=== PATIENT | male | born 1935 | race Caucasian/White ===

== ENCOUNTER → 2017-10-01 | Day surgery (SDC) | payer MEDICARE, OTHER ==
[2017-09-27 11:50] LABS: BASOPHILS % 0.3 % (0.0-1.0); EOSINOPHILS # (AUTO) 0.2 (0.0-0.4); EOSINOPHILS % 3.5 % (0.0-6.0); HEMATOCRIT 38.1 % (38.2-49.6); HEMOGLOBIN 12.6 g/dL (14.0-18.0); LYMPHOCYTES # (AUTO) 1.3 (1.0-3.2); LYMPHOCYTES % 19.7 % (18.0-39.1); MEAN CORPUSCULAR HEMOGLOBIN 28.8 pg (28-32); MEAN CORPUSCULAR HGB CONC 33.1 g/dL (31-35); MEAN CORPUSCULAR VOLUME 87.2 fL (81-99); MONOCYTES # (AUTO) 0.5 (0.2-0.8); NEUTROPHILS # (AUTO) 4.5 (2.1-6.9); PLATELET COUNT 125 x10e3/uL (140-360); RED BLOOD COUNT 4.37 x10e6/uL (4.3-5.7); RED CELL DISTRIBUTION WIDTH 12.6 % (11.7-14.4)
[~2017-10-01] MED LIST: CENTRUM SILVER1 EAC2 PO; HYOSCYAMINE SULFATE 0.5 MG/ML AMP ONE; LIDOCAINE HCL 2% LOCAL INJ 5 ML SDV VIAL INJ ONE; LIPITOR20 MG PO; LISINOPRIL20 MG PO; MIDAZOLAM HCL 2 MG/2 ML VIAL ONE; PROPOFOL IV EMULSION 10 MG/ML 50 ML VIAL ONE
--- NOTE | 2017-10-01 11:50 | Operative Report ---
DATE OF PROCEDURE: October 01, 2017 REFERRING PHYSICIAN: Dr. Natty Langford. PROCEDURE PERFORMED: Colonoscopy and polypectomy. INDICATIONS FOR COLONOSCOPY: Colorectal cancer screening. Personal history of colon polyps. MEDICATION: Patient was done under MAC. Please see anesthesiologist's note. PROCEDURE: With the patient in the left lateral decubitus position, the flexible fiberoptic Olympus colonoscope was inserted into the rectum with ease and advanced all the way to the cecum. Two cecal polyps were removed per snare electrocautery. The cecal pouch was somewhat nodular, and that was biopsied. There were still some retained stools in the colon, primarily the right colon, so prep overall was suboptimal. The scope was then withdrawn slowly, and 2 polyps were snared from the ascending colon and 1 polyp was hot biopsied. Two polyps were snared from the transverse colon. Diverticular disease was noted to involve the descending and the sigmoid. The rectum grossly appeared to be within normal limits. The scope was then retroflexed into the distal rectum, and moderate-size internal hemorrhoids were noted, none of which was actively bleeding. The scope was then straightened out. It was subsequently withdrawn. Patient tolerated the procedure well. IMPRESSION 1. Suboptimal prep. 2. Cecal polyps times 2, snared. 3. Cecal pouch somewhat nodular, biopsied. 4. Ascending colon polyps times 3, two snared and one hot biopsied. 5. Transverse colon polyps times 2, snared. 6. Diverticulosis. 7. Internal hemorrhoids, none actively bleeding. PLAN: Follow up histology. Initiate high-fiber, low-fat diet. Initiate high-fiber supplement. Patient might benefit from a followup colonoscopy in 1 year due to the suboptimal prep. Job#: [id number] cc:NATTY LNAGFORD DO
== END | disposition home or self-care (01) ==
LOC: OR 08:20
PROVIDERS: ATTEND Internal Medicine Gastroenterology
DX: Z12.11 Encounter for screening for malignant neoplasm of colon (principal); D12.0 Benign neoplasm of cecum; D12.2 Benign neoplasm of ascending colon; D12.3 Benign neoplasm of transverse colon; K57.30 Diverticulosis of large intestine without perforation or abscess without bleeding; K64.8 Other hemorrhoids; K21.9 Gastro-esophageal reflux disease without esophagitis; I10 Essential (primary) hypertension; Z01.810 Encounter for preprocedural cardiovascular examination; Z01.812 Encounter for preprocedural laboratory examination; Z68.31 Body mass index [BMI] 31.0-31.9, adult; Z85.46 Personal history of malignant neoplasm of prostate
CPT/HCPCS: 36415; 45380; 45384; 45385; 85025; 88305; 93005; J1980; J2001; J2250

== ENCOUNTER 2018-10-04 14:42 | Observation (INO) | payer MEDICARE, OTHER ==
[~2018-10-04] VITALS: Ht 172.7 cm; Wt 99.8 kg
[~2018-10-04 14:42] MED LIST changes: -HYOSCYAMINE SULFATE 0.5 MG/ML AMP ONE; -LIDOCAINE HCL 2% LOCAL INJ 5 ML SDV VIAL INJ ONE; -MIDAZOLAM HCL 2 MG/2 ML VIAL ONE; -PROPOFOL IV EMULSION 10 MG/ML 50 ML VIAL ONE
[2018-10-04] MEDS ORDERED: DILTIAZEM HCL 5 MG/ML 5 ML VIAL IV STA (15:03)
[2018-10-04] MEDS ORDERED: ASPIRIN 81 MG CHEW TAB PO ONE ×2 (15:15)
[2018-10-04 15:38] LABS: BASOPHILS % 0.3 % (0.0-1.0); EOSINOPHILS # (AUTO) 0.3 (0.0-0.4); EOSINOPHILS % 4.2 % (0.0-6.0); HEMATOCRIT 41.6 % (38.2-49.6); HEMOGLOBIN 14.4 g/dL (14.0-18.0); LYMPHOCYTES # (AUTO) 1.3 (1.0-3.2); LYMPHOCYTES % 18.9 % (18.0-39.1); MEAN CORPUSCULAR HEMOGLOBIN 30.3 pg (28-32); MEAN CORPUSCULAR HGB CONC 34.6 g/dL (31-35); MEAN CORPUSCULAR VOLUME 87.4 fL (81-99); MONOCYTES # (AUTO) 0.8 (0.2-0.8); NEUTROPHILS # (AUTO) 4.4 (2.1-6.9); PLATELET COUNT 146 x10e3/uL (140-360); RED BLOOD COUNT 4.76 x10e6/uL (4.3-5.7); RED CELL DISTRIBUTION WIDTH 12.3 % (11.7-14.4)
[2018-10-04 15:49] LABS: ALANINE AMINOTRANSFERASE 19 IU/L (0-55); ALBUMIN 4.4 g/dL (3.5-5.0); ALBUMIN/GLOBULIN RATIO 1.3 (0.8-2.0); ALKALINE PHOSPHATASE 47 IU/L (40-150); ANION GAP 16.2 mmol/L (8-16); BLOOD UREA NITROGEN 19 mg/dL (7-26); BUN/CREATININE RATIO 22 (6-25); CALCIUM 9.6 mg/dL (8.4-10.2); CARBON DIOXIDE 24 mmol/L (22-29); CHLORIDE 99 mmol/L (98-107); CREATINE KINASE 64 IU/L (30-200); CREATININE, SERUM 0.87 mg/dL (0.72-1.25); EST GLOMERULAR FILTRATION RATE > 60 ML/MIN (60-); GLUCOSE 185 mg/dL (74-118); POTASSIUM 4.2 mmol/L (3.5-5.1); SODIUM 135 mmol/L (136-145)
--- NOTE | 2018-10-04 17:24 | Diagnostic Imaging Report ---
EXAMINATION: CHEST SINGLE (PORTABLE) COMPARISON: None INDICATION: Atrial fibrillation, tachycardia DISCUSSION: Frontal view of the chest obtained at 1708 hours. HEART AND MEDIASTINUM: The heart is top normal in size. The aorta is ectatic LINES: None. LUNGS: Well-inflated. Round density in the left midlung field measures 12 mm. No consolidation. Pulmonary vascular markings are normal. PLEURA: No pleural effusion or pneumothorax. BONES AND SOFT TISSUES: There are several healed left posterior rib fractures. There are moderate degenerative changes of the left shoulder. Several radiodensities are present in the soft tissues surrounding the left shoulder and lower left neck. IMPRESSION: No acute cardiopulmonary disease. Other findings as described above. Signed by: Dr. An Hinojosa MD on 10/04/2018 5:21 PM
[2018-10-04] MEDS: METOPROLOL TARTRATE 25 MG TAB PO SCH (17:45)
--- NOTE | 2018-10-04 19:00 | NUR ---
received bedside report from claudia rivera, pt awake alert skin w/d resp nonlab, nad noted. resting in poc at this time
--- NOTE | 2018-10-04 21:39 | NUR ---
pt awake alert skin w/d resp nonlab. nad noted.
[2018-10-05 00:02] LABS: CREATINE KINASE MB 1.1 ng/mL (0-5.0)
--- NOTE | 2018-10-05 03:25 | NUR ---
pt awake alert skin w/d resp nonlab, nad noted. voided in urinal, emptied 200cc from urinal.
[2018-10-05 07:01] LABS: CHOL/HDL RATIO 4.2 (3.9-4.7)
--- NOTE | 2018-10-05 07:10 | NUR ---
ASSUMED CARE AT THIS TIME. PATIENT AWAKE AND ALERT SITTING IN BED. RESP EVEN AND UNLABORED. SKIN WARM AND DRY. NO SIGNS OF ACUTE DISTRESS NOTED AT THIS TIME. DENIES ANY C/O AT THIS TIME. FAMILY AT BEDSIDE.
[2018-10-05 07:30] LABS: CREATINE KINASE MB 1.2 ng/mL (0-5.0)
[2018-10-05] MEDS: METOPROLOL TARTRATE 25 MG TAB PO SCH ×2 (09:40→17:58)
--- NOTE | 2018-10-05 10:29 | NUR ---
DR Eduardo LANGFORD AT BEDSIDE FOR PATIENT EVAL AND DISCUSSING THE CURRENT PLAN OF CARE, VERBALIZED UNDERSTANDING. NO SIGNS OF ACUTE DISTRESS NOTED AT THIS TIME.
--- NOTE | 2018-10-05 10:30 | NUR ---
DR Eduardo LANGFORD AT BEDSIDE DISCUSSING PLANNED PROCEDURE, TRANSESOPHOGEAL ECHOCARDIOGRAM AND CARDIOVERSION, DR LANGFORD EDUCATING PATIENT AND FAMILY ON THE RISKS AND BENEFITS OF PROCEDURE, VERBALIZED UNDERSTANDING. VERBAL ORDER RECEIVED TO CONSENT PATIENT FOR PROCEDURE.
[2018-10-05 10:51] LABS: MAGNESIUM 2.2 MG/DL (1.3-2.1)
--- NOTE | 2018-10-05 10:55 | NUR ---
DR Dejah BRANHAM AT BEDSIDE FOR PATIENT EVAL AND DISCUSSING THE CURRENT PLAN OF CARE, PATIENT AND FAMILY VERBALIZED UNDERSTANDING. NO SIGNS OF ACUTE DISTRESS NOTED AT THIS TIME.
[2018-10-05 11:19] LABS: THYROID STIMULATING HORMONE 2.849 uIU/mL (0.350-4.940)
--- NOTE | 2018-10-05 12:27 | NUR ---
PATIENT AWAKE AND ALERT SITTING IN BED. RESP EVEN AND UNLABORED. SKIN WARM AND DRY. NO SIGNS OF ACUTE DISTRESS NOTED AT THIS TIME. DENIES ANY C/O AT THIS TIME. FAMILY AT BEDSIDE.
--- NOTE | 2018-10-05 13:15 | NUR ---
CONSENT FORM SIGNED FOR TRANSESOPHOGEAL ECHOCARDIOGRAM AND CARDIOVERSION, EDUCATED PATIENT ON THE RISKS AND BENEFITS OF PROCEDURE, PATIENT AND FAMILY VERBALIZED UNDERSTANDING. GIVEN OPPORTUNITY TO ASK QUESTIONS, DENIES ANY QUESTIONS OR CONCERNS AT THIS TIME.
[2018-10-05] MEDS ORDERED: BENZOCAINE 20% SPR 60 ML CAN ONE (13:50)
[2018-10-05] MEDS ORDERED: SODIUM CHLORIDE 0.9% 1000ML 1,000 ML ONE (13:50)
--- NOTE | 2018-10-05 13:57 | NUR ---
BEDSIDE REPORT CORTNEYN TO [facility]ANGER NURSE, PAULETTE SHARMA.
--- NOTE | 2018-10-05 14:00 | NUR ---
PATIENT TRANSPORTED TO [facility] BY [facility] RN. NO SIGNS OF ACUTE DISTRESS NOTED AT THIS TIME.
--- NOTE | 2018-10-05 15:07 | Consultation ---
DATE OF CONSULTATION: October 05, 2018 CARDIOLOGY CONSULTATION REASON FOR CONSULTATION: Atrial flutter. HISTORY OF PRESENT ILLNESS: This is an 83-year-old man with a history of hypertension and hypercholesterolemia, who presented to my outpatient clinic with generalized fatigue and shortness of breath. He was found to be in atrial flutter with 2:1 with a heart rate of approximately 150. He denies any palpitations or syncopal events. No cardiovascular disease or cerebrovascular accidents. He was brought to the ER here at our facility, and received diltiazem and metoprolol, which controlled his heart rate better. However, he remained in atrial flutter. He underwent transesophageal echocardiography, which revealed no intracardiac masses or thrombi. He underwent successful direct current cardioversion with prompt church to normal sinus rhythm. REVIEW OF SYSTEMS: A 12-point review of systems was conducted, and is negative other than described in HPI. PAST MEDICAL HISTORY: Hypertension, hyperlipidemia. PAST SURGICAL HISTORY: None recent. FAMILY HISTORY: No premature coronary artery disease or sudden cardiac . SOCIAL HISTORY: No current illicit drug use, alcohol use or tobacco use. ALLERGIES: NO KNOWN DRUG ALLERGIES. MEDICATIONS: See medication reconciliation form. PHYSICAL EXAMINATION VITALS: Temperature is 98.7, heart rate is 73, respirations are 16, blood pressure is 119/98, oxygen saturation is 98% on 2 L nasal cannula. GENERAL: He is a well-appearing elderly man lying comfortably in bed. HEENT: Head is normocephalic and atraumatic. Eyes: Extraocular muscles are intact. Throat is clear. NECK: No JVD. No bruits. CARDIOVASCULAR: He is irregularly irregular. Normal rate. Normal S1 and S2. Soft murmur at the right sternal border. LUNGS: Clear to auscultation. ABDOMEN: Soft, nontender and nondistended. EXTREMITIES: No clubbing, cyanosis or edema. VASCULAR: Two plus pulses. SKIN: Warm, dry and intact. NEUROLOGIC: No focal deficits noted. Cranial nerves grossly intact. PSYCHIATRIC: Normal mood and affect. LABORATORY DATA: Reviewed. Hemoglobin 14.4 and platelets 146,000. Potassium 4.2. Magnesium 2.2. TSH is 2.8. LDL is 90. Creatinine 0.87. Chest x-ray shows no cardiopulmonary abnormality. A 12-lead electrocardiogram showed atrial flutter with 2:1 block. A 12-lead electrocardiogram #2 showed atrial flutter with a 3:1 AV block. A 2-D echocardiogram showed overall preserved left ventricular systolic function with estimated ejection fraction of 55% to 60% with aortic sclerosis without significant stenosis. IMPRESSION 1. Atrial flutter: Status post direct current cardioversion. 2. Hypertension. 3. Hyperlipidemia. 4. Aortic sclerosis without stenosis. 5. Mitral regurgitation. RECOMMENDATIONS: This patient underwent successful direct current cardioversion with church to normal sinus rhythm. Will continue metoprolol for rate control. Will start oral anticoagulation in the form of Eliquis for approximately 4 weeks. Also, continue his lisinopril and atorvastatin. The patient will be monitored overnight on telemetry monitoring with possible discharge in the morning. Job#: [id number] BURTON
--- NOTE | 2018-10-05 15:07 | Operative Report ---
DATE OF PROCEDURE: PROCEDURES PERFORMED 1. Transesophageal echocardiography. 2. Direct current cardioversion. PREOPERATIVE DIAGNOSIS: Atrial flutter. POSTOPERATIVE DIAGNOSIS: Atrial flutter. ESTIMATED BLOOD LOSS: 0 mL. SPECIMENS REMOVED: None. PROCEDURE IN DETAIL: After informed consent was obtained, the patient was brought to the cardiac catheterization laboratory in the fasting, nonsedated state. His posterior pharynx was anesthetized with Hurricane spray. Patient received sedation using monitored anesthesia care in the form of propofol. The cardiography probe was passed with ease and multiple images were performed. No intracardiac masses or thrombi were noted. Patient underwent successful direct current cardioversion at 200 joules. Job#: [id number] LILIAM
[2018-10-05] MEDS ORDERED: ZYRTEC10 M3 PO (15:18)
[2018-10-05] MEDS ORDERED: MUCINEX DM ER1 EACH PO (15:18)
[2018-10-05 15:19] VITALS: BP 119/59
[2018-10-05 15:24] VITALS: BP 119/59
[2018-10-05 16:14] LABS: CREATINE KINASE MB 1.1 ng/mL (0-5.0)
[2018-10-05] MEDS: APIXABAN 5 MG TABLET PO SCH (17:58)
[2018-10-05] MEDS ORDERED: PROPOFOL IV EMULSION 10 MG/ML 20 ML VIAL ONE (19:26)
[2018-10-05] MEDS ORDERED: LIDOCAINE HCL 2% LOCAL INJ 5 ML SDV VIAL INJ ONE (19:26)
[2018-10-05 19:55] VITALS: BP 128/71
[2018-10-05] MEDS ORDERED: ATORVASTATIN 20 MG TAB PO SCH (21:00)
[2018-10-05 23:34] VITALS: BP 128/71
[2018-10-06] VITALS: BP 121/71
[2018-10-06 04:40] VITALS: BP 132/68
[2018-10-06 07:25] VITALS: BP 151/72
--- NOTE | 2018-10-06 07:29 | NUR ---
pt resting in bed, no s/s distress at this time. no c/o pain. will continue to monitor.
--- NOTE | 2018-10-06 08:51 | NUR ---
CASE MANAGEMENT INITIAL ASSESSMENT Skiver Sock Linings to bedside to discuss plan of care with patient/family. CM/SW role and care transitions discussed. Anticipated discharge plan discussed along with duration of care. CM/SW discussed patients right to make decisions in care. CM/SW work hours given. Patient lives: IN HOUSE WITH Admit/Transfer: FROM HOME POA/Emergency contact: KEE [phone] Current/Previous Home Health: NONE PCP/Follow-up Care: [facility] Current/Previous DME: [facility] Other Services: NONE Employment Status: RETIRED Areas of Concerns: NONE Referral Needs: NONE Education Needs: NONE IMM/SMITH given and signed (if applicable): SMITH Goal for discharge: RETURN HOME INDEPENDENTLY CM/SW left business card at the bedside with contact information. Name and number was also written on the patients whiteboard. Patient verbalized understanding of discussion. CM will follow-up with ongoing discharge and transition of care needs.
[2018-10-06] MEDS ORDERED: LISINOPRIL 20 MG TAB PO SCH (09:00)
[2018-10-06] MEDS: APIXABAN 5 MG TABLET PO SCH (09:46)
[2018-10-06] MEDS: METOPROLOL TARTRATE 25 MG TAB PO SCH (09:47)
[2018-10-06 11:25] VITALS: BP 151/72
[2018-10-06 11:30] VITALS: BP 114/66
[2018-10-06 15:33] VITALS: BP 121/78
--- NOTE | 2018-10-06 16:04 | NUR ---
pt abhay, reviewed dc instructions and new rx with patient and family, verified understanding.
--- NOTE | 2018-10-06 16:08 | Progress Note ---
DATE: October 06, 2018 CARDIOLOGY PROGRESS NOTE SUBJECTIVE: Patient feels better, ready to go home, denies any chest pain or shortness of breath. OBJECTIVE: VITAL SIGNS: Temperature is 97.9, heart rate is 74, respirations are 20, blood pressure is 121/78, oxygen saturation is 96% on room air. GENERAL: Well-appearing, well-built, in no apparent distress. CARDIOVASCULAR: Regular rate and rhythm. LUNGS: Clear to auscultation. ABDOMEN: Soft, nontender, nondistended. EXTREMITIES: No clubbing, cyanosis or edema. VASCULAR: 2+ pulses. LABORATORY DATA: Reviewed. TELEMETRY MONITORING: Showed normal sinus rhythm. CARDIOVASCULAR MEDICATIONS: Reviewed. IMPRESSION: 1. Atrial flutter with rapid ventricular response, resolved status post transesophageal echocardiogram and direct current cardioversion. 2. Hypertension. 3. Hyperlipidemia. PLAN: Patient underwent successful JAMES with cardioversion. He has maintained normal sinus rhythm. Continue Eliquis for anticoagulation for 4 weeks. Continue metoprolol for rate control. Otherwise continue current cardiovascular medications for his hyperlipidemia and hypertension. Patient is stable for discharge. Job#: [id number] EV
== END 2018-10-06 16:05 | disposition home or self-care (01) ==
LOC: ER 14:42 → ERHOLD 17:02 → IMCU 10-05 14:59
DX: I48.92 Unspecified atrial flutter (principal); I48.91 Unspecified atrial fibrillation; K21.9 Gastro-esophageal reflux disease without esophagitis; E78.5 Hyperlipidemia, unspecified; E78.00 Pure hypercholesterolemia, unspecified; I70.0 Atherosclerosis of aorta; I34.0 Nonrheumatic mitral (valve) insufficiency
CPT/HCPCS: 36415 ×2; 71045; 80053; 80061; 82550 ×2; 82553 ×2; 83735; 84436; 84443; 84479; 84484 ×2; 85025; 93005; 93306; 93307; 93312; 93325; 99284; G0378 ×3; J2001; J2704; J7030

== ENCOUNTER → 2019-02-20 | Outpatient (CLI) | payer MEDICARE, OTHER ==
[~2019-02-20] MED LIST changes: +MUCINEX DM ER1 EACH PO; +ZYRTEC10 M3 PO
--- NOTE | 2019-02-20 12:01 | Diagnostic Imaging Report ---
Right knee MRI without contrast. History: Knee pain. Arthritis. Decreased range of motion. Pain not responding to conservative management. Comparison: None. Technique: Multiplanar multi-sequence MRI of the knee without contrast. Findings: Medial compartment: Obliquely oriented medial meniscus tear involving the posterior horn and body segments. Mild reactive bone marrow edema at the periphery of the medial tibial plateau. The medial compartmental articular cartilage surfaces are thinned with regions of fraying and fissuring. There are small peripheral marginal osteophytes. The medial collateral ligament complex is intact. Artifact at the medial joint line obscures fine detail of the region. Lateral compartment: Complex displaced lateral meniscus tear involving the posterior horn and body segments. Articular cartilage fraying and deep fissuring in the lateral compartment with marked underlying bone marrow edema. The lateral collateral ligament complex is intact. Intercondylar notch: The ACL and PCL are intact. Patellofemoral compartment: Articular cartilage fraying and fissuring in the patellofemoral compartment.. Extensor mechanism: The quadriceps and patellar tendons are normal. Other findings: There is a joint effusion and synovitis. There is no acute fracture, subluxation or avascular necrosis. 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 Oblique medial meniscus tear with mild degenerative arthrosis in the medial compartment of the knee. Artifact at the medial joint line obscures fine detail of the region. Joint effusion, synovitis and lobulated septated Reyes's cyst. Signed by: Dr. Dakota Azar M.D. on 02/20/2019 11:58 AM
== END ==
LOC: MRI 10:39
PROVIDERS: ATTEND Family Medicine
DX: M17.11 Unilateral primary osteoarthritis, right knee (principal)

== ENCOUNTER → 2019-03-16 | Outpatient (RCR) | payer MEDICARE, OTHER ==
[~2019-03-16] MED LIST changes: +BACITRACIN 50,000 UNIT VIAL ONE; +BUPIVACAINE 0.5%/EPI 30 ML SDV INJ ONE; +GELATIN SPONGE 12-7MM ONE; +THROMBIN FOR SOLN 5,000 UNIT VIAL ONE
== END ==
LOC: PT 03-06 13:56
PROVIDERS: ATTEND Orthopaedic Surgery
DX: M17.11 Unilateral primary osteoarthritis, right knee (principal); M25.561 Pain in right knee; M25.661 Stiffness of right knee, not elsewhere classified; M62.81 Muscle weakness (generalized); R26.2 Difficulty in walking, not elsewhere classified

== ENCOUNTER 2019-04-13 14:54 | Outpatient (RCR) | payer MEDICARE, OTHER ==
[~2019-04-13 14:54] MED LIST changes: -BACITRACIN 50,000 UNIT VIAL ONE; -BUPIVACAINE 0.5%/EPI 30 ML SDV INJ ONE; -GELATIN SPONGE 12-7MM ONE; -THROMBIN FOR SOLN 5,000 UNIT VIAL ONE
== END 2019-04-15 ==
LOC: PT 14:54
PROVIDERS: ATTEND Orthopaedic Surgery
DX: M17.11 Unilateral primary osteoarthritis, right knee (principal); M62.81 Muscle weakness (generalized); R26.2 Difficulty in walking, not elsewhere classified

== ENCOUNTER 2019-04-24 15:00 | Outpatient (RCR) | payer MEDICARE, OTHER | END 2019-05-16 | LOC: PT 15:00 | PROVIDERS: ATTEND Orthopaedic Surgery | DX: M17.11 Unilateral primary osteoarthritis, right knee (principal); M62.81 Muscle weakness (generalized); R26.2 Difficulty in walking, not elsewhere classified | CPT/HCPCS: 97139 ==

== ENCOUNTER 2020-09-12 13:10 | Emergency (ER) | payer MEDICARE, OTHER ==
[~2020-09-12] VITALS: Ht 172.7 cm; Wt 99.8 kg
[2020-09-12] MEDS ORDERED: ASPIRIN81 MG (13:34)
[2020-09-12] MEDS ORDERED: METOPROLOL SUCC25 MG (13:34)
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
--- OUTSIDE RECORDS SUMMARY | 2020-09-12 13:56 | XMS REPORT | Continuity of Care Document ---
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 UDV9690) 0.010 0-0.300 [facility] TaylorCreatine Qgcjya7670-40-93 16:10:00* Test Item Value Reference Range Interpretation Comments Creatine Kinase (test code = 2157-6) 63 30-200 [facility] TaylorCreatine Xnhmyk5472-88-97 16:10:00* Test Item Value Reference Range Interpretation Comments Creatine Kinase (test code = 2157-6) 63 30-200 [facility] TaylorCreatine Qmkeyd8023-60-14 16:10:00* Test Item Value Reference Range Interpretation Comments Creatine Kinase (test code = 2157-6) 63 30-200 [facility] TaylorCreatine Xiwuyp1038-92-96 16:10:00* Test Item Value Reference Range Interpretation Comments Creatine Kinase (test code = 2157-6) 63 30-200 [facility] TaylorFree Thyroxine Gpvfb0864-27-98 11:30:00* Test Item Value Reference Range Interpretation Comments Free Thyroxine Index (test code = 27304-2) 2.0268 1.4-3.8 [facility] TaylorThyroxine (T4)2018-10-05 11:30:00* Test Item Value Reference Range Interpretation Comments Thyroxine (T4) (test code = 3026-2) 5.97 4.5-10.9 [facility] TaylorTriiodothyronine (T3) Ufyauu3051-58-32 11:30:00* Test Item Value Reference Range Interpretation Comments Triiodothyronine (T3) Uptake (test code = 3050-2) 33.95 22.5 -37.0 [facility] TaylorThyroid Stimulating Hormone (TSH) 2018-10-05 11:30:00* Test Item Value Reference Range Interpretation Comments Thyroid Stimulating Hormone (TSH) (test code = 41110-0) 2.849 0.350-4.940 [facility] TaylorFr Thyroxine Ekonq5022-63-25 11:30:00* Test Item Value Reference Range Interpretation Comments Free Thyroxine Index (test code = 57117-2) 2.0268 1.4-3.8 [facility] TaylorThyroxine (T4)2018-10-05 11:30:00* Test Item Value Reference Range Interpretation Comments Thyroxine (T4) (test code = 3026-2) 5.97 4.5-10.9 [facility] TaylorTriiodothyronine (T3) Baupfn1973-45-53 11:30:00* Test Item Value Reference Range Interpretation Comments Triiodothyronine (T3) Uptake (test code = 3050-2) 33.95 22.5 -37.0 [facility] TaylorThyroid Stimulating Hormone (TSH) 2018-10-05 11:30:00* Test Item Value Reference Range Interpretation Comments Thyroid Stimulating Hormone (TSH) (test code = 23438-7) 2.849 0.350-4.940 [facility] TaylorFr Thyroxine Rnckg2689-33-65 11:30:00* Test Item Value Reference Range Interpretation Comments Free Thyroxine Index (test code = 94480-6) 2.0268 1.4-3.8 [facility] TaylorThyroxine (T4)2018-10-05 11:30:00* Test Item Value Reference Range Interpretation Comments Thyroxine (T4) (test code = 3026-2) 5.97 4.5-10.9 [facility] TaylorTriiodothyronine (T3) Eydwro0554-58-19 11:30:00* Test Item Value Reference Range Interpretation Comments Triiodothyronine (T3) Uptake (test code = 3050-2) 33.95 22.5 -37.0 [facility] TaylorThyroid Stimulating Hormone (TSH) 2018-10-05 11:30:00* Test Item Value Reference Range Interpretation Comments Thyroid Stimulating Hormone (TSH) (test code = 01751-6) 2.849 0.350-4.940 [facility] TaylorFr Thyroxine Kqjrt9576-89-81 11:30:00* Test Item Value Reference Range Interpretation Comments Free Thyroxine Index (test code = 06362-0) 2.0268 1.4-3.8 [facility] TaylorThyroxine (T4)2018-10-05 11:30:00* Test Item Value Reference Range Interpretation Comments Thyroxine (T4) (test code = 3026-2) 5.97 4.5-10.9 [facility] TaylorTriiodothyronine (T3) Hheneh6185-43-24 11:30:00* Test Item Value Reference Range Interpretation Comments Triiodothyronine (T3) Uptake (test code = 3050-2) 33.95 22.5 -37.0 [facility] TaylorThyroid Stimulating Hormone (TSH) 2018-10-05 11:30:00* Test Item Value Reference Range Interpretation Comments Thyroid Stimulating Hormone (TSH) (test code = 05218-0) 2.849 0.350-4.940 [facility] Clubgnesium Nzqhz6249-55-50 10:53:00* Test Item Value Reference Range Interpretation Comments Magnesium Level (test code = 68574-7) 2.2 1.3-2.1 H [facility] TaylorMaesium Reykj7995-14-86 10:53:00* Test Item Value Reference Range Interpretation Comments Magnesium Level (test code = 39510-2) 2.2 1.3-2.1 H [facility] Trophy Clubgnesium Fbduk1822-37-12 10:53:00* Test Item Value Reference Range Interpretation Comments Magnesium Level (test code = 70627-5) 2.2 1.3-2.1 H [facility] TaylorMagnesium Nupku9883-91-04 10:53:00* Test Item Value Reference Range Interpretation Comments Magnesium Level (test code = 17996-8) 2.2 1.3-2.1 H [facility] TaylorTriglycerides Paklg3618-57-32 07:06:00* Test Item Value Reference Range Interpretation Comments Triglycerides Level (test code = 2571-8) 179 0-149 H [facility] TaylorCholesterol Qwals5641-58-17 07:06:00* Test Item Value Reference Range Interpretation Comments Cholesterol Level (test code = 2093-3) 165 0-199 Less than 200 mg/dL Low Ccsi651 - 239 mg/dL Borderline Otjn391 m g/dl and greater High Risk [facility] TaylorLDL Giupbagwxij4513-48-85 07:06:00* Test Item Value Reference Range Interpretation Comments LDL Cholesterol (test code = 2089-1) 90 60-130 [facility] TaylorHDL Szcrefjruam5891-69-16 07:06:00* Test Item Value Reference Range Interpretation Comments HDL Cholesterol (test code = 2085-9) 39 40-60 L [facility] TaylorCholesterol/HDL Qqeof4888-38-62 07:06:00 * Test Item Value Reference Range Interpretation Comments Cholesterol/HDL Ratio (test code = 9830-1) 4.2 3.9-4.7 [facility] TaylorTriglycerides Hhycu7863-12-81 07:06:00* Test Item Value Reference Range Interpretation Comments Triglycerides Level (test code = 2571-8) 179 0-149 H [facility] TaylorCholesterol Fypqk6166-14-00 07:06:00* Test Item Value Reference Range Interpretation Comments Cholesterol Level (test code = 2093-3) 165 0-199 Less than 200 mg/dL Low Htkz080 - 239 mg/dL Borderline Eycz060 m g/dl and greater High Risk [facility] TaylorLDL Kncjpipilsy2593-99-86 07:06:00* Test Item Value Reference Range Interpretation Comments LDL Cholesterol (test code = 2089-1) 90 60-130 [facility] TaylorHDL Ymabyrqpgve1397-48-27 07:06:00* Test Item Value Reference Range Interpretation Comments HDL Cholesterol (test code = 2085-9) 39 40-60 L [facility] TaylorCholesterol/HDL Maxgw2193-70-92 07:06:00 * Test Item Value Reference Range Interpretation Comments Cholesterol/HDL Ratio (test code = 9830-1) 4.2 3.9-4.7 [facility] TaylorTriglycerides Iegpm3059-36-94 07:06:00* Test Item Value Reference Range Interpretation Comments Triglycerides Level (test code = 2571-8) 179 0-149 H [facility] TaylorCholesterol Dtudu3912-25-89 07:06:00* Test Item Value Reference Range Interpretation Comments Cholesterol Level (test code = 2093-3) 165 0-199 Less than 200 mg/dL Low Xukj616 - 239 mg/dL Borderline Mzkk001 m g/dl and greater High Risk [facility] TaylorLDL Ruhszmhndng6450-61-51 07:06:00* Test Item Value Reference Range Interpretation Comments LDL Cholesterol (test code = 2089-1) 90 60-130 [facility] TaylorHDL Axptmdmevmv2958-18-02 07:06:00* Test Item Value Reference Range Interpretation Comments HDL Cholesterol (test code = 2085-9) 39 40-60 L [facility] TaylorCholesterol/HDL Gvjfl6795-46-26 07:06:00 * Test Item Value Reference Range Interpretation Comments Cholesterol/HDL Ratio (test code = 9830-1) 4.2 3.9-4.7 [facility] TaylorTriglycerides Iafrk6013-62-85 07:06:00* Test Item Value Reference Range Interpretation Comments Triglycerides Level (test code = 2571-8) 179 0-149 H [facility] TaylorCholesterol Sirob3692-40-43 07:06:00* Test Item Value Reference Range Interpretation Comments Cholesterol Level (test code = 2093-3) 165 0-199 Less than 200 mg/dL Low Yryx413 - 239 mg/dL Borderline Fcjm809 m g/dl and greater High Risk [facility] TaylorLDL Dovijklpxna0976-80-90 07:06:00* Test Item Value Reference Range Interpretation Comments LDL Cholesterol (test code = 2089-1) 90 60-130 [facility] Adnpcaodomr3543-01-11 07:06:00* Test Item Value Reference Range Interpretation Comments HDL Cholesterol (test code = 2085-9) 39 40-60 L [facility] TaylorCholesterol/HDL Tahrr3983-16-26 07:06:00 * Test Item Value Reference Range Interpretation Comments Cholesterol/HDL Ratio (test code = 9830-1) 4.2 3.9-4.7 [facility] TaylorCHEST SINGLE (PORTABLE)2018-10-04 17:19:00 [place] [address] Patient Name: STEVEN YAO MR #: [id number] : 1935 Age/Sex: 83/M Req #: [id number] Adm Physician: JOSIE BRANHAM MD Ordered by: REYNALDO ROE MD Report #: [id number] Location: [facility] Room/Bed: [facility]-2 Procedure: [id number] DX/CHEST SINGLE (PORTABLE) Exam Date: Exam Time: REPORT STATUS: Signed EXAMINATION: CHEST SINGLE (PORTABLE) COMPARISON: None INDICATION: Atrial fib rillation, tachycardia DISCUSSION: Frontal view of the chest obtaine d at 1708 hours. HEART AND MEDIASTINUM: The heart is top normal in size. T he aorta is ectatic LINES: None. LUNGS: Well-inflated. Round densi ty in the left midlung field measures 12 mm. No consolidation. Pulmonary vascu lar markings are normal. PLEURA: No pleural effusion or pneumothorax. BONES AND SOFT TISSUES: There are several healed left posterior rib fractures. There are moderate degenerative changes of the left shoulder. Several r adiodensities are present in the soft tissues surrounding the left shoulder an d lower left neck. IMPRESSION: No acute cardiopulmonary disease. Other f indings as described above. Signed by: Dr. Brian Cortes MD on 018 5:21 PM Dictated By: BRIAN CORTES MD 20 Transcribed By: FAYE on 10/04/181720 COPY TO: REYNALDO ROE MD Sodium Zmnsc9139-89-64 15:57:00* Test Item Value Reference Range Interpretation Comments Sodium Level (test code = 2951-2) 135 136-145 L [facility] TaylorPotassium Msnmu1749-33-36 15:57:00* Test Item Value Reference Range Interpretation Comments Potassium Level (test code = 2823-3) 4.2 3.5-5.1 [facility] TaylorChloride Pwsym5565-27-18 15:57:00* Test Item Value Reference Range Interpretation Comments Chloride Level (test code = 2075-0) 99 98-107 [facility] TaylorCarbon Dioxide Mtfpx8011-38-70 15:57:00* Test Item Value Reference Range Interpretation Comments Carbon Dioxide Level (test code = 2028-9) 24 - [facility] TaylorAnion Wka6240-26-63 15:57:00* Test Item Value Reference Range Interpretation Comments Anion Gap (test code = 57519-5) 16.2 8-16 H [facility] TaylorBlood Urea Xewqbdfe0101-47-05 15:57:00* Test Item Value Reference Range Interpretation Comments Blood Urea Nitrogen (test code = 3094-0) 19 - [facility] TaylorCreatinine2018-12-19 15:57:00* Test Item Value Reference Range Interpretation Comments Creatinine (test code = 2160-0) 0.87 0.72-1.25 [facility] TaylorBUN/Creatinine Pjmhq5006-35-50 15:57:00* Test Item Value Reference Range Interpretation Comments BUN/Creatinine Ratio (test code = 3097-3) 04-10 [facility] TaylorEstimat Glomerular Filtration Rate 2018-10-04 15:57:00* Test Item Value Reference Range Interpretation Comments Estimat Glomerular Filtration Rate (test code = 722843479) > 60 >60 Ranges were taken from the National Kidney Disease Education Program and the [facility] [place] [facility] [employer] literature.Reference ranges:60 or greater: Mcxtnv00-27 ( for 3 consecutive months): Chronic kidney disease 15 or less: Kidney failureBaylor Scott & White Medical Center – TaylorGlucose Yenjz1442-12-75 15:57:00* Test Item Value Reference Range Interpretation Comments Glucose Level (test code = JYO3130) 185 74-118 H [facility] TaylorCalcium Knsih0171-48-19 15:57:00* Test Item Value Reference Range Interpretation Comments Calcium Level (test code = 03074-7) 9.6 8.4-10.2 [facility] TaylorTotal Enttopnli0677-71-60 15:57:00* Test Item Value Reference Range Interpretation Comments Total Bilirubin (test code = 1975-2) 0.6 0.2-1.2 [facility] TaylorAspartate Amino Transf (AST/SGOT) 2018-10-04 15:57:00* Test Item Value Reference Range Interpretation Comments Aspartate Amino Transf (AST/SGOT) (test code = Aspartate Amino Transf (AST/SGOT)) 19 5-34 [facility] TaylorAlanine Aminotransferase (ALT/SGPT) 2018-10-04 15:57:00* Test Item Value Reference Range Interpretation Comments Alanine Aminotransferase (ALT/SGPT) (test code = 1742-6) 19 0-55 [facility] TaylorTotal Tckvgla3986-87-04 15:57:00* Test Item Value Reference Range Interpretation Comments Total Protein (test code = 2885-2) 7.8 6.5-8.1 [facility] TaylorAlbumin2018-12-19 15:57:00* Test Item Value Reference Range Interpretation Comments Albumin (test code = 1751-7) 4.4 3.5-5.0 [facility] TaylorGlobulin2018-12-19 15:57:00* Test Item Value Reference Range Interpretation Comments Globulin (test code = 77641-6) 3.4 2.3-3.5 [facility] TaylorAlbumin/Globulin Gaoiy1518-93-23 15:57:00 * Test Item Value Reference Range Interpretation Comments Albumin/Globulin Ratio (test code = 1759-0) 1.3 0.8-2.0 [facility] TaylorAlkaline Hhuaidqvntq0749-91-52 15:57:00* Test Item Value Reference Range Interpretation Comments Alkaline Phosphatase (test code = 6768-6) 47 40-150 [facility]odium Elujo7934-71-04 15:57:00* Test Item Value Reference Range Interpretation Comments Sodium Level (test code = 2951-2) 135 136-145 L [facility] TaylorPotassium Ynwdf9314-50-82 15:57:00* Test Item Value Reference Range Interpretation Comments Potassium Level (test code = 2823-3) 4.2 3.5-5.1 [facility] TaylorChloride Yzycx5479-42-50 15:57:00* Test Item Value Reference Range Interpretation Comments Chloride Level (test code = 2075-0) 99 98-107 [facility] TaylorCarbon Dioxide Vkirq3039-38-43 15:57:00* Test Item Value Reference Range Interpretation Comments Carbon Dioxide Level (test code = 2028-9) 24 - [facility] TaylorAnion Cgi6615-73-61 15:57:00* Test Item Value Reference Range Interpretation Comments Anion Gap (test code = 30585-1) 16.2 8-16 H [facility] TaylorBlood Urea Zlevooou5089-55-54 15:57:00* Test Item Value Reference Range Interpretation Comments Blood Urea Nitrogen (test code = 3094-0) 19 - [facility] TaylorCreatinine2018-12-19 15:57:00* Test Item Value Reference Range Interpretation Comments Creatinine (test code = 2160-0) 0.87 0.72-1.25 [facility] TaylorBUN/Creatinine Anhkr3903-25-08 15:57:00* Test Item Value Reference Range Interpretation Comments BUN/Creatinine Ratio (test code = 3097-3) 04-10 [facility] TaylorEstimat Glomerular Filtration Rate 2018-10-04 15:57:00* Test Item Value Reference Range Interpretation Comments Estimat Glomerular Filtration Rate (test code = 027235852) > 60 >60 Ranges were taken from the National Kidney Disease Education Program and the [facility] [place] [facility] [employer] literature.Reference ranges:60 or greater: Xqnlnu94-04 ( for 3 consecutive months): Chronic kidney disease 15 or less: Kidney failureBaylor Scott & White Medical Center – TaylorGlucose Hcmhn0619-14-86 15:57:00* Test Item Value Reference Range Interpretation Comments Glucose Level (test code = WRW1472) 185 74-118 H [facility] TaylorCalcium Wuesd3266-38-29 15:57:00* Test Item Value Reference Range Interpretation Comments Calcium Level (test code = 33609-6) 9.6 8.4-10.2 [facility] TaylorTotal Umfzuoxwv5621-56-23 15:57:00* Test Item Value Reference Range Interpretation Comments Total Bilirubin (test code = 1975-2) 0.6 0.2-1.2 [facility] TaylorAspartate Amino Transf (AST/SGOT) 2018-10-04 15:57:00* Test Item Value Reference Range Interpretation Comments Aspartate Amino Transf (AST/SGOT) (test code = Aspartate Amino Transf (AST/SGOT)) 19 5-34 [facility] TaylorAlanine Aminotransferase (ALT/SGPT) 2018-10-04 15:57:00* Test Item Value Reference Range Interpretation Comments Alanine Aminotransferase (ALT/SGPT) (test code = 1742-6) 19 0-55 [facility] TaylorTotal Yeemjsu7586-25-14 15:57:00* Test Item Value Reference Range Interpretation Comments Total Protein (test code = 2885-2) 7.8 6.5-8.1 [facility] TaylorAlbumin2018-12-19 15:57:00* Test Item Value Reference Range Interpretation Comments Albumin (test code = 1751-7) 4.4 3.5-5.0 [facility] TaylorGlobulin2018-12-19 15:57:00* Test Item Value Reference Range Interpretation Comments Globulin (test code = 49897-4) 3.4 2.3-3.5 [facility] TaylorAlbumin/Globulin Kfjqm2681-96-43 15:57:00 * Test Item Value Reference Range Interpretation Comments Albumin/Globulin Ratio (test code = 1759-0) 1.3 0.8-2.0 [facility] TaylorAlkaline Xwyzecuadvh4152-26-16 15:57:00* Test Item Value Reference Range Interpretation Comments Alkaline Phosphatase (test code = 6768-6) 47 40-150 [facility] Hospitalodium Dzvqx7533-30-08 15:57:00* Test Item Value Reference Range Interpretation Comments Sodium Level (test code = 2951-2) 135 136-145 L [facility] TaylorPotassium Ddcaw8036-15-64 15:57:00* Test Item Value Reference Range Interpretation Comments Potassium Level (test code = 2823-3) 4.2 3.5-5.1 [facility] TaylorChloride Tfxyl8020-07-58 15:57:00* Test Item Value Reference Range Interpretation Comments Chloride Level (test code = 2075-0) 99 98-107 [facility] TaylorCarbon Dioxide Tilsl3050-70-56 15:57:00* Test Item Value Reference Range Interpretation Comments Carbon Dioxide Level (test code = 2028-9) 24 - [facility] TaylorAnion Ydx9598-18-19 15:57:00* Test Item Value Reference Range Interpretation Comments Anion Gap (test code = 01649-9) 16.2 8-16 H [facility] TaylorBlood Urea Nzxniwlr2292-22-01 15:57:00* Test Item Value Reference Range Interpretation Comments Blood Urea Nitrogen (test code = 3094-0) 19 - [facility] TaylorCreatinine2018-12-19 15:57:00* Test Item Value Reference Range Interpretation Comments Creatinine (test code = 2160-0) 0.87 0.72-1.25 [facility] TaylorBUN/Creatinine Hulyk7759-76-06 15:57:00* Test Item Value Reference Range Interpretation Comments BUN/Creatinine Ratio (test code = 3097-3) 04-10 [facility] TaylorEstimat Glomerular Filtration Rate 2018-10-04 15:57:00* Test Item Value Reference Range Interpretation Comments Estimat Glomerular Filtration Rate (test code = 982035185) > 60 >60 Ranges were taken from the National Kidney Disease Education Program and the [facility] [place] [facility] literature.Reference ranges:60 or greater: Qgvfqz91-32 ( for 3 consecutive months): Chronic kidney disease 15 or less: Kidney failureBaylor Scott & White Medical Center – TaylorGlucose Lmmhi3803-78-77 15:57:00* Test Item Value Reference Range Interpretation Comments Glucose Level (test code = SHQ3651) 185 74-118 H [facility] TaylorCalcium Dtnal2369-52-10 15:57:00* Test Item Value Reference Range Interpretation Comments Calcium Level (test code = 15534-3) 9.6 8.4-10.2 [facility] TaylorTotal Xgykhqiiq4443-13-28 15:57:00* Test Item Value Reference Range Interpretation Comments Total Bilirubin (test code = 1975-2) 0.6 0.2-1.2 [facility] TaylorAspartate Amino Transf (AST/SGOT) 2018-10-04 15:57:00* Test Item Value Reference Range Interpretation Comments Aspartate Amino Transf (AST/SGOT) (test code = Aspartate Amino Transf (AST/SGOT)) 19 5-34 [facility] TaylorAlanine Aminotransferase (ALT/SGPT) 2018-10-04 15:57:00* Test Item Value Reference Range Interpretation Comments Alanine Aminotransferase (ALT/SGPT) (test code = 1742-6) 19 0-55 [facility] TaylorTotal Calzttc6327-02-15 15:57:00* Test Item Value Reference Range Interpretation Comments Total Protein (test code = 2885-2) 7.8 6.5-8.1 [facility] TaylorAlbumin2018-12-19 15:57:00* Test Item Value Reference Range Interpretation Comments Albumin (test code = 1751-7) 4.4 3.5-5.0 [facility] TaylorGlobulin2018-12-19 15:57:00* Test Item Value Reference Range Interpretation Comments Globulin (test code = 72852-3) 3.4 2.3-3.5 [facility] TaylorAlbumin/Globulin Ybmzd3419-19-72 15:57:00 * Test Item Value Reference Range Interpretation Comments Albumin/Globulin Ratio (test code = 1759-0) 1.3 0.8-2.0 [facility] TaylorAlkaline Layahtaycqy1133-33-23 15:57:00* Test Item Value Reference Range Interpretation Comments Alkaline Phosphatase (test code = 6768-6) 47 40-150 [facility] Hospitalodium Lhfii1185-42-09 15:57:00* Test Item Value Reference Range Interpretation Comments Sodium Level (test code = 2951-2) 135 136-145 L [facility] TaylorPotassium Gysvi8977-29-10 15:57:00* Test Item Value Reference Range Interpretation Comments Potassium Level (test code = 2823-3) 4.2 3.5-5.1 [facility] TaylorChloride Apfos3897-53-26 15:57:00* Test Item Value Reference Range Interpretation Comments Chloride Level (test code = 2075-0) 99 98-107 [facility] TaylorCarbon Dioxide Nitrw5468-13-83 15:57:00* Test Item Value Reference Range Interpretation Comments Carbon Dioxide Level (test code = 2028-9) 24 - [facility] TaylorAnion Fjf7746-27-16 15:57:00* Test Item Value Reference Range Interpretation Comments Anion Gap (test code = 66967-9) 16.2 8-16 H [facility] TaylorBlood Urea Scmoskcy1256-53-80 15:57:00* Test Item Value Reference Range Interpretation Comments Blood Urea Nitrogen (test code = 3094-0) 05-11 [facility] TaylorCreatinine2018-12-19 15:57:00* Test Item Value Reference Range Interpretation Comments Creatinine (test code = 2160-0) 0.87 0.72-1.25 [facility] [facility] TaylorBUN/Creatinine Vvamu4058-26-28 15:57:00* Test Item Value Reference Range Interpretation Comments BUN/Creatinine Ratio (test code = 3097-3) 04-10 [facility] TaylorEstimat Glomerular Filtration Rate 2018-10-04 15:57:00* Test Item Value Reference Range Interpretation Comments Estimat Glomerular Filtration Rate (test code = 311964969) > 60 >60 Ranges were taken from the National Kidney Disease Education Program and the [facility] [facility] [employer] literature.Reference ranges:60 or greater: Uizpar42-52 ( for 3 consecutive months): Chronic kidney disease 15 or less: Kidney failureBaylor [facility] & [facility] TaylorGlucose Xsmpu8459-54-73 15:57:00* Test Item Value Reference Range Interpretation Comments Glucose Level (test code = ITH1960) 185 74-118 H [facility] TaylorCalcium Kwgho5481-92-92 15:57:00* Test Item Value Reference Range Interpretation Comments Calcium Level (test code = 58665-1) 9.6 8.4-10.2 [facility] TaylorTotal Jokwxrwcy6907-73-84 15:57:00* Test Item Value Reference Range Interpretation Comments Total Bilirubin (test code = 1975-2) 0.6 0.2-1.2 [facility] TaylorAspartate Amino Transf (AST/SGOT) 2018-10-04 15:57:00* Test Item Value Reference Range Interpretation Comments Aspartate Amino Transf (AST/SGOT) (test code = Aspartate Amino Transf (AST/SGOT)) 19 5-34 [facility] TaylorAlanine Aminotransferase (ALT/SGPT) 2018-10-04 15:57:00* Test Item Value Reference Range Interpretation Comments Alanine Aminotransferase (ALT/SGPT) (test code = 1742-6) 19 0-55 [facility] TaylorTotal Ncmwfid6950-09-57 15:57:00* Test Item Value Reference Range Interpretation Comments Total Protein (test code = 2885-2) 7.8 6.5-8.1 [facility] TaylorAlbumin2018-12-19 15:57:00* Test Item Value Reference Range Interpretation Comments Albumin (test code = 1751-7) 4.4 3.5-5.0 [facility] TaylorGlobulin2018-12-19 15:57:00* Test Item Value Reference Range Interpretation Comments Globulin (test code = 62901-6) 3.4 2.3-3.5 [facility] TaylorAlbumin/Globulin Wnmxv0284-34-61 15:57:00 * Test Item Value Reference Range Interpretation Comments Albumin/Globulin Ratio (test code = 1759-0) 1.3 0.8-2.0 [facility] TaylorAlkaline Ztrvbpzetvj4918-88-57 15:57:00* Test Item Value Reference Range Interpretation Comments Alkaline Phosphatase (test code = 6768-6) 47 40-150 [facility] TaylorWhite Blood Xtxrl6615-81-85 15:41:00* Test Item Value Reference Range Interpretation Comments White Blood Count (test code = 6690-2) 6.83 4.8-10.8 [facility] TaylorRed Blood Xoevv1987-88-24 15:41:00* Test Item Value Reference Range Interpretation Comments Red Blood Count (test code = 789-8) 4.76 4.3-5.7 [facility] TaylorHemoglobin2018-12-19 15:41:00* Test Item Value Reference Range Interpretation Comments Hemoglobin (test code = 15657-6) 14.4 14.0-18.0 [facility] TaylorHematocrit2018-12-19 15:41:00* Test Item Value Reference Range Interpretation Comments Hematocrit (test code = 4544-3) 41.6 38.2-49.6 [facility] TaylorMean Corpuscular Mdvmzk6089-12-96 15:41:00* Test Item Value Reference Range Interpretation Comments Mean Corpuscular Volume (test code = 787-2) 87.4 81-99 [facility] TaylorMean Corpuscular Oejfnmtung0872-41-67 15:41:00* Test Item Value Reference Range Interpretation Comments Mean Corpuscular Hemoglobin (test code = 785-6) 30.3 28-32 [facility] TaylorMean Corpuscular Hemoglobin Concent 2018-10-04 15:41:00* Test Item Value Reference Range Interpretation Comments Mean Corpuscular Hemoglobin Concent (test code = 786-4) 34.6 31-35 [facility] TaylorRed Cell Distribution Igfnl7984-58-23 15:41:00* Test Item Value Reference Range Interpretation Comments Red Cell Distribution Width (test code = 44063-5) 12.3 11.7 -14.4 [facility] TaylorPlatelet Gqnmj8551-47-47 15:41:00* Test Item Value Reference Range Interpretation Comments Platelet Count (test code = 777-3) 146 140-360 [facility] TaylorNeutrophils (%) (Auto)2018-10-04 15:41:00 * Test Item Value Reference Range Interpretation Comments Neutrophils (%) (Auto) (test code = 86304-4) 65.0 38.7-80.0 [facility] TaylorLymphocytes (%) (Auto)2018-10-04 15:41:00 * Test Item Value Reference Range Interpretation Comments Lymphocytes (%) (Auto) (test code = 736-9) 18.9 18.0-39.1 [facility] TaylorMonocytes (%) (Auto)2018-10-04 15:41:00* Test Item Value Reference Range Interpretation Comments Monocytes (%) (Auto) (test code = 5905-5) 11.0 4.4-11.3 [facility] TaylorEosinophils (%) (Auto)2018-10-04 15:41:00 * Test Item Value Reference Range Interpretation Comments Eosinophils (%) (Auto) (test code = 713-8) 4.2 0.0-6.0 [facility] TaylorBasophils (%) (Auto)2018-10-04 15:41:00* Test Item Value Reference Range Interpretation Comments Basophils (%) (Auto) (test code = 706-2) 0.3 0.0-1.0 [facility] TaylorIM GRANULOCYTES %2018-10-04 15:41:00* Test Item Value Reference Range Interpretation Comments IM GRANULOCYTES % (test code = IM GRANULOCYTES %) 0.6 0.0- 1.0 [facility] TaylorNeutrophils # (Auto)2018-10-04 15:41:00* Test Item Value Reference Range Interpretation Comments Neutrophils # (Auto) (test code = 751-8) 4.4 2.1-6.9 [facility] TaylorLymphocytes # (Auto)2018-10-04 15:41:00* Test Item Value Reference Range Interpretation Comments Lymphocytes # (Auto) (test code = 70161-8) 1.3 1.0-3.2 [facility] TaylorMonocytes # (Auto)2018-10-04 15:41:00* Test Item Value Reference Range Interpretation Comments Monocytes # (Auto) (test code = 742-7) 0.8 0.2-0.8 [facility] TaylorEosinophils # (Auto)2018-10-04 15:41:00* Test Item Value Reference Range Interpretation Comments Eosinophils # (Auto) (test code = 711-2) 0.3 0.0-0.4 [facility] TaylorBasophils # (Auto)2018-10-04 15:41:00* Test Item Value Reference Range Interpretation Comments Basophils # (Auto) (test code = 704-7) 0.0 0.0-0.1 [facility] TaylorAbsolute Immature Granulocyte (auto 2018-10-04 15:41:00* Test Item Value Reference Range Interpretation Comments Absolute Immature Granulocyte (auto (renny t code = Absolute Immature Granulocyte (auto) 0.04 0-0.1 [facility] TaylorWhite Blood Jtopy7396-52-87 15:41:00* Test Item Value Reference Range Interpretation Comments White Blood Count (test code = 6690-2) 6.83 4.8-10.8 [facility] TaylorRed Blood Ceygs9669-73-30 15:41:00* Test Item Value Reference Range Interpretation Comments Red Blood Count (test code = 789-8) 4.76 4.3-5.7 [facility] TaylorHemoglobin2018-12-19 15:41:00* Test Item Value Reference Range Interpretation Comments Hemoglobin (test code = 93303-4) 14.4 14.0-18.0 [facility] TaylorHematocrit2018-12-19 15:41:00* Test Item Value Reference Range Interpretation Comments Hematocrit (test code = 4544-3) 41.6 38.2-49.6 [facility] TaylorMean Corpuscular Milkjx3390-28-88 15:41:00* Test Item Value Reference Range Interpretation Comments Mean Corpuscular Volume (test code = 787-2) 87.4 81-99 [facility] TaylorMean Corpuscular Ozrlclftvs4454-10-54 15:41:00* Test Item Value Reference Range Interpretation Comments Mean Corpuscular Hemoglobin (test code = 785-6) 30.3 28-32 [facility]cent 2018-10-04 15:41:00* Test Item Value Reference Range Interpretation Comments Mean Corpuscular Hemoglobin Concent (test code = 786-4) 34.6 31-35 [facility] TaylorRed Cell Distribution Mngwn3936-55-00 15:41:00* Test Item Value Reference Range Interpretation Comments Red Cell Distribution Width (test code = 02098-0) 12.3 11.7 -14.4 [facility] TaylorPlatelet Wpjlb2531-16-38 15:41:00* Test Item Value Reference Range Interpretation Comments Platelet Count (test code = 777-3) 146 140-360 [facility] TaylorNeutrophils (%) (Auto)2018-10-04 15:41:00 * Test Item Value Reference Range Interpretation Comments Neutrophils (%) (Auto) (test code = 17625-5) 65.0 38.7-80.0 [facility] TaylorLymphocytes (%) (Auto)2018-10-04 15:41:00 * Test Item Value Reference Range Interpretation Comments Lymphocytes (%) (Auto) (test code = 736-9) 18.9 18.0-39.1 [facility] TaylorMonocytes (%) (Auto)2018-10-04 15:41:00* Test Item Value Reference Range Interpretation Comments Monocytes (%) (Auto) (test code = 5905-5) 11.0 4.4-11.3 [facility] TaylorEosinophils (%) (Auto)2018-10-04 15:41:00 * Test Item Value Reference Range Interpretation Comments Eosinophils (%) (Auto) (test code = 713-8) 4.2 0.0-6.0 [facility] TaylorBasophils (%) (Auto)2018-10-04 15:41:00* Test Item Value Reference Range Interpretation Comments Basophils (%) (Auto) (test code = 706-2) 0.3 0.0-1.0 [facility] TaylorIM GRANULOCYTES %2018-10-04 15:41:00* Test Item Value Reference Range Interpretation Comments IM GRANULOCYTES % (test code = IM GRANULOCYTES %) 0.6 0.0- 1.0 [facility] TaylorNeutrophils # (Auto)2018-10-04 15:41:00* Test Item Value Reference Range Interpretation Comments Neutrophils # (Auto) (test code = 751-8) 4.4 2.1-6.9 [facility] TaylorLymphocytes # (Auto)2018-10-04 15:41:00* Test Item Value Reference Range Interpretation Comments Lymphocytes # (Auto) (test code = 43809-8) 1.3 1.0-3.2 [facility] TaylorMonocytes # (Auto)2018-10-04 15:41:00* Test Item Value Reference Range Interpretation Comments Monocytes # (Auto) (test code = 742-7) 0.8 0.2-0.8 [facility] TaylorEosinophils # (Auto)2018-10-04 15:41:00* Test Item Value Reference Range Interpretation Comments Eosinophils # (Auto) (test code = 711-2) 0.3 0.0-0.4 [facility] TaylorBasophils # (Auto)2018-10-04 15:41:00* Test Item Value Reference Range Interpretation Comments Basophils # (Auto) (test code = 704-7) 0.0 0.0-0.1 [facility] TaylorAbsolute Immature Granulocyte (auto 2018-10-04 15:41:00* Test Item Value Reference Range Interpretation Comments Absolute Immature Granulocyte (auto (renny t code = Absolute Immature Granulocyte (auto) 0.04 0-0.1 [facility] TaylorWhite Blood Gzyob3579-53-62 15:41:00* Test Item Value Reference Range Interpretation Comments White Blood Count (test code = 6690-2) 6.83 4.8-10.8 [facility] TaylorRed Blood Fmubf8136-46-63 15:41:00* Test Item Value Reference Range Interpretation Comments Red Blood Count (test code = 789-8) 4.76 4.3-5.7 [facility] TaylorHemoglobin2018-12-19 15:41:00* Test Item Value Reference Range Interpretation Comments Hemoglobin (test code = 77946-5) 14.4 14.0-18.0 [facility] TaylorHematocrit2018-12-19 15:41:00* Test Item Value Reference Range Interpretation Comments Hematocrit (test code = 4544-3) 41.6 38.2-49.6 [facility] TaylorMean Corpuscular Qwkxoe5429-04-01 15:41:00* Test Item Value Reference Range Interpretation Comments Mean Corpuscular Volume (test code = 787-2) 87.4 81-99 [facility] TaylorMean Corpuscular Byxenuebtm3039-40-30 15:41:00* Test Item Value Reference Range Interpretation Comments Mean Corpuscular Hemoglobin (test code = 785-6) 30.3 28-32 [facility] TaylorMean Corpuscular Hemoglobin Concent 2018-10-04 15:41:00* Test Item Value Reference Range Interpretation Comments Mean Corpuscular Hemoglobin Concent (test code = 786-4) 34.6 31-35 [facility] TaylorRed Cell Distribution Bgoso6132-49-31 15:41:00* Test Item Value Reference Range Interpretation Comments Red Cell Distribution Width (test code = 74271-0) 12.3 11.7 -14.4 [facility] TaylorPlatelet Uwyqa6699-41-61 15:41:00* Test Item Value Reference Range Interpretation Comments Platelet Count (test code = 777-3) 146 140-360 [facility] TaylorNeutrophils (%) (Auto)2018-10-04 15:41:00 * Test Item Value Reference Range Interpretation Comments Neutrophils (%) (Auto) (test code = 37306-1) 65.0 38.7-80.0 [facility] TaylorLymphocytes (%) (Auto)2018-10-04 15:41:00 * Test Item Value Reference Range Interpretation Comments Lymphocytes (%) (Auto) (test code = 736-9) 18.9 18.0-39.1 [facility] TaylorMonocytes (%) (Auto)2018-10-04 15:41:00* Test Item Value Reference Range Interpretation Comments Monocytes (%) (Auto) (test code = 5905-5) 11.0 4.4-11.3 [facility] TaylorEosinophils (%) (Auto)2018-10-04 15:41:00 * Test Item Value Reference Range Interpretation Comments Eosinophils (%) (Auto) (test code = 713-8) 4.2 0.0-6.0 [facility] TaylorBasophils (%) (Auto)2018-10-04 15:41:00* Test Item Value Reference Range Interpretation Comments Basophils (%) (Auto) (test code = 706-2) 0.3 0.0-1.0 [facility] TaylorIM GRANULOCYTES %2018-10-04 15:41:00* Test Item Value Reference Range Interpretation Comments IM GRANULOCYTES % (test code = IM GRANULOCYTES %) 0.6 0.0- 1.0 [facility] TaylorNeutrophils # (Auto)2018-10-04 15:41:00* Test Item Value Reference Range Interpretation Comments Neutrophils # (Auto) (test code = 751-8) 4.4 2.1-6.9 [facility] TaylorLymphocytes # (Auto)2018-10-04 15:41:00* Test Item Value Reference Range Interpretation Comments Lymphocytes # (Auto) (test code = 42466-7) 1.3 1.0-3.2 [facility] TaylorMonocytes # (Auto)2018-10-04 15:41:00* Test Item Value Reference Range Interpretation Comments Monocytes # (Auto) (test code = 742-7) 0.8 0.2-0.8 [facility] TaylorEosinophils # (Auto)2018-10-04 15:41:00* Test Item Value Reference Range Interpretation Comments Eosinophils # (Auto) (test code = 711-2) 0.3 0.0-0.4 [facility] TaylorBasophils # (Auto)2018-10-04 15:41:00* Test Item Value Reference Range Interpretation Comments Basophils # (Auto) (test code = 704-7) 0.0 0.0-0.1 [facility] TaylorAbsolute Immature Granulocyte (auto 2018-10-04 15:41:00* Test Item Value Reference Range Interpretation Comments Absolute Immature Granulocyte (auto (renny t code = Absolute Immature Granulocyte (auto) 0.04 0-0.1 [facility] TaylorWhite Blood Orjne5571-04-99 15:41:00* Test Item Value Reference Range Interpretation Comments White Blood Count (test code = 6690-2) 6.83 4.8-10.8 [facility] TaylorRed Blood Sicpq8614-48-56 15:41:00* Test Item Value Reference Range Interpretation Comments Red Blood Count (test code = 789-8) 4.76 4.3-5.7 [facility] TaylorHemoglobin2018-12-19 15:41:00* Test Item Value Reference Range Interpretation Comments Hemoglobin (test code = 55938-1) 14.4 14.0-18.0 [facility] TaylorHematocrit2018-12-19 15:41:00* Test Item Value Reference Range Interpretation Comments Hematocrit (test code = 4544-3) 41.6 38.2-49.6 [facility] TaylorMean Corpuscular Eccrxt8248-72-33 15:41:00* Test Item Value Reference Range Interpretation Comments Mean Corpuscular Volume (test code = 787-2) 87.4 81-99 [facility] TaylorMean Corpuscular Ujjehogpwe2659-98-71 15:41:00* Test Item Value Reference Range Interpretation Comments Mean Corpuscular Hemoglobin (test code = 785-6) 30.3 28-32 [facility] TaylorMean Corpuscular Hemoglobin Concent 2018-10-04 15:41:00* Test Item Value Reference Range Interpretation Comments Mean Corpuscular Hemoglobin Concent (test code = 786-4) 34.6 31-35 [facility] TaylorRed Cell Distribution Causk6284-80-30 15:41:00* Test Item Value Reference Range Interpretation Comments Red Cell Distribution Width (test code = 56213-9) 12.3 11.7 -14.4 [facility] TaylorPlatelet Lzwce3911-41-69 15:41:00* Test Item Value Reference Range Interpretation Comments Platelet Count (test code = 777-3) 146 140-360 [facility] TaylorNeutrophils (%) (Auto)2018-10-04 15:41:00 * Test Item Value Reference Range Interpretation Comments Neutrophils (%) (Auto) (test code = 53154-1) 65.0 38.7-80.0 [facility] TaylorLymphocytes (%) (Auto)2018-10-04 15:41:00 * Test Item Value Reference Range Interpretation Comments Lymphocytes (%) (Auto) (test code = 736-9) 18.9 18.0-39.1 [facility] TaylorMonocytes (%) (Auto)2018-10-04 15:41:00* Test Item Value Reference Range Interpretation Comments Monocytes (%) (Auto) (test code = 5905-5) 11.0 4.4-11.3 [facility] TaylorEosinophils (%) (Auto)2018-10-04 15:41:00 * Test Item Value Reference Range Interpretation Comments Eosinophils (%) (Auto) (test code = 713-8) 4.2 0.0-6.0 [facility] TaylorBasophils (%) (Auto)2018-10-04 15:41:00* Test Item Value Reference Range Interpretation Comments Basophils (%) (Auto) (test code = 706-2) 0.3 0.0-1.0 [facility] TaylorIM GRANULOCYTES %2018-10-04 15:41:00* Test Item Value Reference Range Interpretation Comments IM GRANULOCYTES % (test code = IM GRANULOCYTES %) 0.6 0.0- 1.0 [facility] TaylorNeutrophils # (Auto)2018-10-04 15:41:00* Test Item Value Reference Range Interpretation Comments Neutrophils # (Auto) (test code = 751-8) 4.4 2.1-6.9 [facility] TaylorLymphocytes # (Auto)2018-10-04 15:41:00* Test Item Value Reference Range Interpretation Comments Lymphocytes # (Auto) (test code = 52580-8) 1.3 1.0-3.2 [facility] TaylorMonocytes # (Auto)2018-10-04 15:41:00* Test Item Value Reference Range Interpretation Comments Monocytes # (Auto) (test code = 742-7) 0.8 0.2-0.8 [facility] TaylorEosinophils # (Auto)2018-10-04 15:41:00* Test Item Value Reference Range Interpretation Comments Eosinophils # (Auto) (test code = 711-2) 0.3 0.0-0.4 [facility] TaylorBasophils # (Auto)2018-10-04 15:41:00* Test Item Value Reference Range Interpretation Comments Basophils # (Auto) (test code = 704-7) 0.0 0.0-0.1 [facility] TaylorAbsolute Immature Granulocyte (auto 2018-10-04 15:41:00* Test Item Value Reference Range Interpretation Comments Absolute Immature Granulocyte (auto (renny t code = Absolute Immature Granulocyte (auto) 0.04 0-0.1 [facility]
--- NOTE | 2020-09-12 14:07 | Diagnostic Imaging Report ---
CT BRAIN [facility] HISTORY: Trauma COMPARISON: None. Technique: Noncontrast axial scans were obtained from skull base to the vertex. Coronal and sagittal reconstructions obtained from the axial data. One or more of the following dose reduction techniques were used: Automated exposure control, adjustment of the mA and/or kV according to patient size, and/or utilization of iterative reconstruction technique. DISCUSSION: Scalp/Skull: Unremarkable. Brain sulci: Mildly prominent. Ventricles: Compensatory dilatation. Extra-axial spaces: No masses or fluid collections. Carotid and vertebral artery calcifications are present. Parenchyma: Mild bilateral deep white matter hypodensity is likely chronic microvascular ischemic change. Otherwise, no masses, hemorrhage, or large vascular territory acute infarct. Dural sinuses: No abnormal densities. Sellar/Suprasellar region: Intact. Skull base: Intact. Incidental findings: Mild bilateral ethmoid air some and right sphenoid sinus mucosal thickening. Trace right mastoid effusion. Bilateral ocular lens replacement. IMPRESSION: 1. No acute intracranial abnormalities. 2. Mild supratentorial chronic microvascular ischemic change. Mild generalized cerebral volume loss. Signed by: Dr. Edgard Garcia M.D. on 09/12/2020 2:04 PM
[2020-09-12 14:19] VITALS: BP 151/80
== END 2020-09-12 14:21 | disposition home or self-care (01) ==
LOC: FSED 13:22
DX: S09.90XA Unspecified injury of head, initial encounter (principal); V43.62XA Car passenger injured in collision with other type car in traffic accident, initial encounter
CPT/HCPCS: 70450; 99283